=== PATIENT | female | born 1985 | race Caucasian/White ===

== ENCOUNTER 2019-11-29 15:29 | Emergency (ER) | payer OTHER, MEDICAID, SELFPAY ==
[2019-11-29 15:30] VITALS: BP 132/65; PULSE 74; RESP 16; TEMP 36.4; O2SAT 100
[2019-11-29 15:31] VITALS: BP 132/65; PULSE 82; RESP 16; TEMP 36.4; O2SAT 100; BMI 19.8
--- NOTE | 2019-11-29 15:51 | RAD_ITS ---
STUDY: X-RAY - UNILATERAL RIBS ( RIGHT ) REASON FOR EXAM: Female, 34 years old. Lower anterior and upper pain. TECHNIQUE: 4 view(s) of the ribs. COMPARISON: None. FINDINGS: There is no pneumothorax. There are no displaced rib fractures. RAD/Ribs Unil 2V No CXR IMPRESSION: Normal x-ray examination of the ribs. Electronically Signed: Veronika Fernandez, at 17:07 EDT Tel , Service support ,
--- NOTE | 2019-11-29 15:51 | RAD_ITS ---
STUDY: X-RAY CHEST REASON FOR EXAM: Female, 34 years old. Lower anterior and upper pain. TECHNIQUE: Frontal and lateral views of the chest COMPARISON: None. FINDINGS: The lungs are clear and expanded. There is no demonstrated pleural abnormality. Normal size heart. Normal mediastinum and jeremiah. Normal visualized pulmonary arteries. Normal visualized aortic arch and descending thoracic aorta. Normal visualized thoracic spine. Normal visualized ribs, clavicles, and shoulders. There is no demonstrated abnormality of the visualized soft tissue structures of the upper abdomen. RAD/Chest PA and Lateral IMPRESSION: Normal x-ray examination of the chest. Electronically Signed: Veronika Fernandez, at 17:00 EDT Tel , Service support ,
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
[2019-11-29] MEDS: Ketorolac 30 MG/ML Syringe IM (17:38)
[2019-11-29 18:06] VITALS: RESP 16
== END 2019-11-29 18:06 | disposition home or self-care (01) ==
PROVIDERS: Emergency Provider Emergency Medicine; PCP Internal Medicine
DX: S00.83XA Contusion of other part of head, initial encounter (principal); R07.89 Other chest pain; Y04.2XXA Assault by strike against or bumped into by another person, initial encounter
CPT/HCPCS: 70450; 70486; 71046; 71100; 96372; 99282

== ENCOUNTER 2021-09-01 09:20 | Day surgery (SDC) | payer OTHER, MEDICAID, SELFPAY ==
[2021-09-01] MEDS: Lactated Ringers 1,000 ML 15 ML IV ×2 (09:35→12:07)
[2021-09-01 09:56] VITALS: BP 111/64; PULSE 57; RESP 16; TEMP 36.5; O2SAT 100; BMI 24.6
[2021-09-01 09:57] LABS: Internal QC Validated? YES +Cl - CLEAR BKGD; Pregnancy, Urine Negative Negative
[2021-09-01 10:17] LABS: Hematocrit 43.4 % (37-47); Hemoglobin 14.6 g/dL (12.0-15.0); Mean Corp Hgb Conc 33.6 g/dL (32-36); Mean Corpuscular Hgb 31.8 pg (27.0-32.0); Mean Corpuscular Volume 94.6 fL (81-99); Mean Platelet Vol. 10.8 fl (6.2-12.0); Platelet Count 232 K/mm3 (150-450); RBC Distribution Width CV 13.2 % (11.6-14.6); RBC Distribution Width SD 46.1 fl (35.1-43.9); Red Blood Count 4.59 M/mm3 (4.2-5.4); White Blood Count 9.4 K/mm3 (4.4-11.0)
--- NOTE | 2021-09-01 11:10 | FALS_PTH ---
PATIENT: DANIELLE MENCHACA [place] [facility] [id number] AGE/SX: 36/F ROOM: RE09/01/[address]: Dr. Melany Thakkar DO : 1985 BED: DIS: 09/01/2021 SPEC #: [id number] RECD: 09/01/21 12:48 STATUS: HARJEET GIOVANNY #: [id number] SAMANTHA: 09/01/21 11:[address]: Melany Thakkar DEPT: SURGICAL PATHOLOGY RECD BY: Luly Ball ENTERED: 09/02/21 07:19 SP TYPE: FALL TUBES OTHR DR: Dr. Osmar Sotelo MD Tissues: Fallopian tube Procedures: Surgery Specimen Level II HEADER OPERATION: Bilateral laparoscopic salpingectomy, removal IUD PRE-OP DIAGNOSIS: Sterilization TISSUE SUBMITTED: Bilateral fallopian tubes MICROSCOPIC DIAGNOSIS Right and left fallopian tubes, bilateral salpingectomies: Complete cross-sections of two fallopian tubes with no pathologic change. AM:chandrakant 09/05/2021 MICROSCOPIC DESCRIPTION Slides are reviewed. GROSS DESCRIPTION Received in fixative is one container labeled with the patient's name and designated bilateral fallopian tubes. The specimen consists of bilateral fallopian tubes including fimbrial ends each measuring 7 cm in length and 0.7 cm in diameter. The fallopian tubes are not identified as right or left. Sections reveal unremarkable cut surfaces. Portable Grinding Machine Operator sections are submitted in two cassettes with each cassette containing one fallopian tube. / PAULA:chandrakant 09/02/2021 TC:4 CPT: 45580 x2
[2021-09-01] MEDS: Bupivacaine 0.5% PF 10 ML VIAL (11:23)
--- NOTE | 2021-09-01 11:28 | PCM.DC ---
Discharge Instructions Diet Discharge Diet: No restrictions Activity Discharge Activity: May Drive (At least 24 hours after surgery and when you feel your core is strong enough to slam on a brake or turn a steering wheel sharply) and May Shower May resume sexual activity in: 1-2 weeks Ice area for (Minutes): 15 Weight Bearing Status: Weight bearing as tolerated Lifting Restrictions: Nothing heavier than 10 lbs for 1 week Dressing / Incision Call your doctor if your incision/area has: Continuous Slow Oozing, Sudden Increased Bleeding, Increased Pain/ Swelling, Increased Redness, Foul Smelling Discharge and Swelling at the incision site Call your doctor if you observe: Fever of 101 or Higher, Coldness, Increased Pain, Numbness or Tingling, Change in Color, Inability to urinate, Inability to have a bowel movement, Using more than 1 pad per hour, Shortness of breath, Dizziness, Fainting spells, Swelling in the ankles, Chest pain, Increased palpitations (irregular heartbeat), Calf discomfort and Uncontrolled pain Suture Line Care: Avoid Pulling/Pushing and Avoid Pinching/Bending Cleanse incision/area with: Soap & Water Additional Dressing/Incision Instructions:: There is suture under the skin that will dissolve and glue over top. As the glue is coming up you can peel it off or cut it if it is bothersome for you Follow Up Care Please Follow Up With: Melany Thakkar DO When: 1 week Test Results: Test results from this visit will be discussed in further detail at your follow-up appointment, if applicable. Discharge Plan Admission Primary Reason for Your Visit: surgery Attending Provider: Melany Thakkar Primary Care Provider: Osmar Sotelo Discharge Orders/Prescriptions Prescriptions: New oxycodone-acetaminophen [Percocet] 5-325 mg tablet 1 tab PO Q6H PRN (Reason: pain) 7 Days Qty: 5 RF: 0 ibuprofen 600 mg tablet 600 mg PO Q6H PRN (Reason: pain) Qty: 20 RF: 0 Continued Probiotic 3 billion cell Capsule 3,000 mmu cells PO DAILY RF: 0 Referrals / Follow Up: Osmar Sotelo MD [Primary Care Provider] - Disposition Disposition (needs filled in before D/C Order can be placed): Home, Self Care
--- NOTE | 2021-09-01 11:31 | OP.PCM_ITS ---
Problems Associated Problem List Diagnoses (1) Sterilization: (2) Multiparous: Report of Operation Date of Procedure: 09/01/21 Pre-Operative Diagnosis: Desires permanent sterilization, desires IUD removal Post-Operative Diagnosis: As above Surgery/Procedure Performed:: IUD removal, laparoscopic bilateral salpingectomy Description of Surgical Findings:: Normal appearing uterus, bilateral fallopian tubes, and bilateral ovaries. Normal pelvis. Surgeon: Melany Thakkar logistics engineering manager: Mignon MAURICIO Type of Anesthesia: General Special Medications: None Specimen's removed: Bilateral fallopian tubes Drains: None Estimated Blood Loss (mL): < 50 cc Fluids Replaced: See anesthesia record Description of Procedure: Indications: Patient desires permanent sterilization. She understands this is permanent and irreversible and there is a risk of regret. Procedure: Patient was taken to the operating room where general anesthesia was found be adequate. She was prepped and draped in the dorsal lithotomy position using yellowfin stirrups. From below a weighted speculum was placed in the vagina to expose the cervix. The anterior lip of the cervix was grasped with single-tooth tenaculum. Using ring forceps IUD strings were grasped and with gentle traction the IUD was removed easily and noted to be intact. A Dunia cannula was placed for uterine manipulation. Gloves were changed and attention was turned to the abdominal portion of the procedure. A 5 mm incision was made infraumbilically after injection of local. Using the laparoscope the 5 mm port was placed under direct visualization. Once confirmed intraperitoneal CO2 insufflation was initiated. The omentum and bowel below was inspected and no injuries were noted. The patient was placed in Trendelenburg. A right lateral 5 mm post and left lateral 5 mm port were placed after infiltration with local. The pelvis was inspected and noted to be normal-appearing. The right fallopian tube was elevated out of the pelvis and followed out to the fimbriated end. Using the LigaSure device the mesosalpinx was serially clamped, cauterized, and transected until the cornua was reached. Once the cornua was reached the fallopian tube was clamped, cauterized, transected and the right fallopian tube was removed. The same was performed on the left to remove the left fallopian tube. Bilateral fallopian tubes were sent to pathology for review. Hemostasis was noted. The ports were removed and the abdomen was exsufflated. The skin was closed with 4-0 Monocryl in a subcuticular fashion and glue was placed. All instruments were removed from the vagina and the vaginal sweep was performed. Instrument, sponge, needle counts were correct and patient was taken to recovery in stable condition. Grafts/Implants Used: None Complications None Admit VTE Documentation VTE Present on Admission: No VTE Mechan Device Prophylaxis: SCD's
[2021-09-01 11:34] VITALS: BP 111/64; BP 98/83; PULSE 68; RESP 16; TEMP 36.8; O2SAT 100
[2021-09-01 11:45] VITALS: BP 107/58; BP 111/64; PULSE 59; RESP 16; O2SAT 100
[2021-09-01 12:00] VITALS: BP 111/64; BP 128/73; PULSE 65; RESP 16; O2SAT 100
[2021-09-01 12:02] VITALS: BP 111/64; BP 121/72; PULSE 61; RESP 16; TEMP 36.8; O2SAT 100
[2021-09-01 14:00] VITALS: BP 111/64; BP 122/70; PULSE 76; RESP 17; TEMP 37; O2SAT 97
== END 2021-09-01 23:59 | disposition home or self-care (01) ==
LOC: SDC 09:25 → AC 09:28
PROVIDERS: PCP Internal Medicine; Referring Provider Obstetrics & Gynecology; Visit Provider Obstetrics & Gynecology
PROC: (CPT 58661; principal; 2021-09-01 10:55)
DX: Z30.2 Encounter for sterilization (principal); Z30.432 Encounter for removal of intrauterine contraceptive device; Z86.16 Personal history of COVID-19
CPT/HCPCS: 58661; 58301; 00840; 81025; 85027; 86850; 86900; 86901; 87426; 88302; C9803; J7120; J2405

== ENCOUNTER 2024-05-17 10:28 | Emergency (ER) | payer OTHER, SELFPAY ==
[2024-05-17 10:29] VITALS: BP 140/98; PULSE 105; RESP 18; TEMP 37.1; O2SAT 98; BMI 33.3
--- NOTE | 2024-05-17 10:49 | CT_ITS ---
HISTORY: LLQ abd pain, N/V/D. TECHNIQUE: Helically acquired images were obtained of the abdomen and pelvis after the intravenous administration of 100 mL Isovue-370. A radiation dose optimization technique was used for this scan. 437 images. COMPARISON: None. FINDINGS: LOWER CHEST: Lung bases clear. BOWEL: Bowel including appendix nondilated. Mild fluid distention of small bowel and colon. No focal pericolonic inflammatory change observed. LIVER: No enhancing mass. GALLBLADDER/BILIARY TREE: Gallbladder present. SPLEEN/PANCREAS: Homogeneous and nonenlarged. ADRENAL GLANDS/KIDNEYS: Unremarkable. VESSELS: No abdominal aortic aneurysm. PELVIC ORGANS: Intrauterine device in place. Trace free fluid in the pelvis, which can be physiological. BONES: Intact. CT/Abdomen/Pelvis W IV Cont ONLY IMPRESSION: Mild gastroenteritis/diarrheal illness with mild fluid distention of bowel. Electronically Signed: Lesli Stokes MD at 13:29 EST ,
--- NOTE | 2024-05-17 10:50 | EDS_ITS ---
HPI History of Present Illness Chief Complaint: Nausea/Vomiting/Diarrhea Detail of Chief Complaint: Nausea and vomiting and diarrhea and abdominal pain Informant: patient Narrative Narrative: Patient presents to the emergency department with vomiting and diarrhea started 2 days ago. She is having frequent vomiting more 26 times in frequent watery stools. She is also complaining of a lot of pain in the left lower quadrant. Patient states that she has been having gas and bloating for several months. She has had subjective fever and chills at home. She went to urgent care and was referred to the ER. She works in a intermediate. She has been exposed to some colleagues that have had COVID and her grandson she believes may have had vomiting and diarrhea before Barrett. Patient denies recent travel or surgery. She denies blood in her stool or vomit. [facility] Medical History (Updated 05/17/24 @ 14:[address] Akash Romero, DO) Alcohol use Anemia Bladder disease Restless legs Migraine headache Non-smoker Leg cramps Home Medications ?Medication ?Instructions ?Recorded ?Last Taken ?Type dicyclomine 10 mg capsule 20 mg (2 x 10 mg) PO TIDAC #20 05/17/24 Unknown Rx CAPSULES ondansetron 4 mg disintegrating 4 mg PO Q8H PRN PRN Nausea #10 tabs 05/17/24 Unknown Rx tablet Allergy/AdvReac Type Severity Reaction Status Date / Time No Known Allergies Allergy Verified 08/31/23 14:40 Surgical History History of colposcopy No history of previous surgery Social History Smoking Status: Never smoker ROS ROS ED Review of Systems ROS Unobtainable: other Constitutional Constitutional ED: Reports lethargy; Denies chills, fever(s), sweats or weight loss Eyes Eyes: Denies blurry vision, change in vision or diplopia ENT ENT ED: Denies rhinorrhea or sore throat Cardiovascular Cardiovascular: Reports chest pain and racing heartbeat; Denies orthopnea Respiratory/Chest Respiratory/Chest: Reports dyspnea and dyspnea on exertion; Denies cough, orthopnea or sputum Gastrointestinal Gastrointestinal: Reports abdominal pain, diarrhea, nausea and vomiting Genitourinary Genitourinary ED: Denies dysuria, hematuria or urinary frequency Musculoskeletal Musculoskeletal: Denies arthralgias, back pain, myalgias or neck pain Integumentary Denies abscess, Abrasions or rash Neurologic Neurologic: Denies headache(s) or weakness Psychiatric Psychiatric: Denies anxiety, depression or suicidal thoughts Endocrine Endocrinology: Denies polydipsia, polyphagia or polyuria Hematologic/Lymphatic Hematologic/Lymphatic: Denies easy bleeding, easy bruising or lymphadenopathy Allergic/Immunologic Allergic/Immunologic ED: Denies mouth swelling, tongue swelling or urticaria EXAM Physical Exam Const Vital Signs: 05/17/24 10:29 05/17/24 12:28 Temperature 98.7 F Temperature Source Oral Pulse Rate 105 H 91 Respiratory Rate 18 16 Blood Pressure 140/98 H 132/78 H Blood Pressure Mean 112 96 Pulse Ox 98 98 Oxygen Delivery Method Room Air Room Air Positive well nourished and well developed General Appearance ED: well developed and NAD HEENT Reports TM's clear and moist mucous membranes normocephalic and atraumatic; Negative for trauma or tenderness Tympanic Membrane ED: Yes TM's clear Eyes PERRL and EOMs intact bilaterally General Eye ED: Negative for pale conjunctiva or scleral icterus Neck no lymphadenopathy, supple and no JVD General: Negative for tenderness Chest Wall inspection of chest normal and palpation of chest normal Chest: Negative for tenderness Resp normal respiratory effort and clear to auscultation bilaterally Effort and Inspection: Negative for respiratory distress or pain with movement Auscultation: Negative for rhonchi, wheezes or diminished lung sounds Cardio regular rate, regular rhythm, S1 normal heart sound, S2 normal heart sound and no murmurs Peripheral Pulses: pulses 2+ throughout GI normal to inspection, nondistended, normoactive bowel sounds, soft to palpation, non-distended and no masses GI Narrative: Diffuse tenderness on exam. Patient is some guarding to the left lower quadrant. There is no rebound, rigidity, or peritoneal signs. No mass palpation Back/Spine no CVA tenderness and no thoracic nor lumbar tenderness Extremity normal to inspection General Extremety ED: Negative for edema General Extremity: Negative for edema Neuro oriented x3, CN's II-XII intact bilaterally, no sensory deficits noted and gait normal Sensorium / Orientation: awake, alert, oriented to person, oriented to place and oriented to time Motor Exam: strength 5/5 throughout and strength abnormal Psych mental status grossly normal Skin no rashes or lesions noted and no wounds MDM MDM MDM Narrative Medical decision making narrative: Patient presents with vomiting and diarrhea with abdominal discomfort has been going on for 2 days. Patient states there is a history of diverticulitis in the family. Clinically I suspected acute viral illness however needed to rule out diverticulitis or other acute process given the amount of abdominal discomfort she was describing. Established. She was given a liter normal same fluid bolus. CBC with differential the patient awakened at 13.4 with hemoglobin 15.1 and platelet count of 222. Chemistries unremarkable. hCG was negative. Lactate normal at 1.1. CT scan of the abdomen pelvis showed mild gastroenteritis/diarrheal illness and no other acute findings. While in the department she was medicated with Bentyl as well as morphine and Zofran and given a liter and a second fluid bolus. She felt improved after treatment. I recommended that she use Imodium which is [id number] for the diarrhea and we will write her prescription for Bentyl and Zofran. Advised to return if persistent vomiting, worsening abdominal pain, dehydration, or condition worsening way. Patient attempted to give a stool sample for enteric pathogen's but could not produce a sample. Lab Data Attestation: I reviewed the patient's lab results. Labs: Laboratory Results - last 24 hr 05/17/24 11:12 WBC 13.4 H RBC 4.71 Hgb 15.1 H Hct 45.2 MCV 96.0 MCH 32.1 H MCHC 33.4 RDW Std Deviation 48.1 H RDW Coeff of Yari 13.4 Plt Count 222 MPV 10.4 Immature Gran % (Auto) 0.600 Neut % (Auto) 91.9 H Lymph % (Auto) 3.1 L Island % (Auto) 4.0 Eos % (Auto) 0.1 Baso % (Auto) 0.3 Absolute Neuts (auto) 12.3 H Absolute Lymphs (auto) 0.42 L Nucleated RBC % 0 Sodium 137 Potassium 3.8 Chloride 106 Carbon Dioxide 23.0 Anion Gap 8 BUN 10 Creatinine 0.85 Estim Creat Clear Calc 96.92 Est GFR (MDRD) Af Amer 94 Est GFR (MDRD) Non-Af 78 BUN/Creatinine Ratio 11.7 Glucose 121 H Lactic Acid 1.1 Calcium 8.7 Serum , Qual NEGATIVE Radiography Diagnostic Testing: Clinical Impression(s) from Imaging Studies Abdomen/Pelvis CT 05/17/24 10:49 IMPRESSION: Mild gastroenteritis/diarrheal illness with mild fluid distention of bowel. Electronically Signed: Lesli Stokes MD at 13:29 EST , Discharge Plan Triage Chief Complaint: Nausea/Vomiting/Diarrhea ED Provider: Akash Romero Dx/Rx/DC Orders Clinical Impression: Viral gastroenteritis Instructions: ED Gastroenteritis, Viral (Adult) Prescriptions: New ondansetron 4 mg tablet,disintegrating 4 mg PO Q8H PRN PRN (Reason: Nausea) Qty: 10 0RF dicyclomine 10 mg capsule 20 mg PO TIDAC Qty: 20 0RF Primary Care Provider: Clair Lopez Referrals: Osmar Sotelo MD [Med Staff - Cloud Consultant] - 3-5 Days Print Language: Upper Sorbian Disposition Disposition: Home, Self Care
[2024-05-17] MEDS: 0.9% Normal Saline (1000mL) 1,000 ML 999 ML IV (11:14)
[2024-05-17] MEDS: Ondansetron 4 MG/2 ML Vial IV (11:14)
[2024-05-17] MEDS: Morphine 4 MG/ML Syringe IV (11:16)
[2024-05-17] MEDS: Dicyclomine 20 MG/2 ML Vial IM (11:16)
[2024-05-17 11:31] LABS: Absolute Lymphocyte Count 0.42 X10^3/uL (0.83-4.51); Absolute Neutrophil Count 12.3 X10^3/uL (2.0-7.7); Basophil# 0.04 X10^3/uL; Basophil% 0.3 % (0-1); Eosinophil# 0.01 X10^3/uL; Eosinophils% 0.1 % (0-5); Hematocrit 45.2 % (37-47); Hemoglobin 15.1 g/dL (12.0-15.0); Lymphocyte # 0.42 X10^3/ul (0.83-4.51); Lymphocyte % 3.1 % (19-41); Mean Corp Hgb Conc 33.4 g/dL (32-36); Mean Corpuscular Hgb 32.1 pg (27.0-32.0); Mean Platelet Vol. 10.4 fl (6.2-12.0); Monocyte# 0.54 X10^3/uL; NRBC Flagged by Analyzer 0 % (0-5); Neutrophil # 12.31 X10^3/uL (2.7-7.7); Neutrophil % 91.9 % (47-70); Platelet Count 222 K/mm3 (150-450); RBC Distribution Width CV 13.4 % (11.6-14.6); RBC Distribution Width SD 48.1 fl (35.1-43.9); Red Blood Count 4.71 M/mm3 (4.2-5.4); White Blood Count 13.4 K/mm3 (4.4-11.0)
[2024-05-17 11:35] LABS: POSITIVE DIFFERENTIAL NO
[2024-05-17 11:42] LABS: Internal QC Validated? YES +Cl - CLEAR BKGD; Pregnancy, Serum, hCG Quali. NEGATIVE Negative
[2024-05-17 11:47] LABS: Anion Gap 8 (5-15); BUN 10 mg/dL (7-18); BUN/Creat Ratio 11.7 RATIO (10-20); Calcium,Total 8.7 mg/dL (8.5-10.1); Chloride 106 mmol/L (98-107); Creatinine, Serum 0.85 mg/dL (0.55-1.02); EST Glomerular Filtration Rate 78 mL/min (>60); Est Glom Filt Rate - Afr Amer 94 mL/min (>60); Estimated Creatinine Clearance 96.92 ml/min; Glucose 121 mg/dL (74-106); Potassium 3.8 mmol/L (3.5-5.1); Sodium Level 137 mmol/L (136-145)
[2024-05-17 12:01] LABS: Lactic Acid 1.1 mmol/L (0.4-1.9)
[2024-05-17 12:28] VITALS: BP 132/78; PULSE 91; RESP 16; O2SAT 98
== END 2024-05-17 14:13 | disposition home or self-care (01) ==
PROVIDERS: Emergency Provider Emergency Medicine; PCP Internal Medicine; Visit Provider Emergency Medicine
DX: A08.4 Viral intestinal infection, unspecified (principal)
CPT/HCPCS: 74177; 80048; 83605; 84703; 85025; 96361; 96372; 96374; 96375; 99283; Q9967; A4216; J2405

== ENCOUNTER 2024-08-14 15:52 | Emergency (ER) | payer OTHER, SELFPAY ==
[2024-08-14] VITALS (22 sets, daily range): BP systolic 124–168; BP diastolic 66–102; PULSE 65–97; RESP 12–21; TEMP 36; O2SAT 95–99; BMI 34.4
--- NOTE | 2024-08-14 16:09 | ED.VIS.CHEST ---
HPI History of Present Illness Chief Complaint: Chest Pain [facility] Medical History Alcohol use Anemia Bladder disease Restless legs Migraine headache Non-smoker Leg cramps Home Medications ?Medication ?Instructions ?Recorded ?Last Taken ?Type NK 08/14/24 Unknown History Allergy/AdvReac Type Severity Reaction Status Date / Time No Known Allergies Allergy Verified 08/14/24 16:32 Surgical History History of colposcopy No history of previous surgery Social History (Updated 08/14/24 @ 16:31 by Preeti Herndon) household members: significant other and children current occupational status: employed Smoking Status: Never smoker EXAM Physical Exam Const Vital Signs: 08/14/24 15:53 08/14/24 17:10 08/14/24 18:00 Temperature 96.8 F L Temperature Source Temporal Pulse Rate 97 67 65 Respiratory Rate 20 H 16 13 Respiratory Effort Respiratory Depth Respiratory Pattern Blood Pressure 165/102 H 168/93 H 161/92 H Blood Pressure Mean 123 118 115 Pulse Ox 99 99 97 Oxygen Delivery Method Room Air Room Air 08/14/24 18:24 08/14/24 19:00 08/14/24 20:00 Temperature Temperature Source Pulse Rate 74 83 Respiratory Rate 15 15 Respiratory Effort Normal Non-Labored Respiratory Depth Normal Respiratory Pattern Normal Blood Pressure 134/91 H 135/88 H Blood Pressure Mean 105 103 Pulse Ox 97 98 Oxygen Delivery Method Room Air Room Air 08/14/24 20:02 08/14/24 20:15 08/14/24 20:30 Temperature Temperature Source Pulse Rate 81 81 80 Respiratory Rate 15 12 18 Respiratory Effort Respiratory Depth Respiratory Pattern Blood Pressure 136/80 H 130/89 H Blood Pressure Mean 98 101 Pulse Ox 98 99 97 Oxygen Delivery Method 08/14/24 20:45 08/14/24 21:00 08/14/24 21:00 Temperature Temperature Source Pulse Rate 84 82 74 Respiratory Rate 13 17 18 Respiratory Effort Respiratory Depth Respiratory Pattern Blood Pressure 136/79 H 132/66 H 132/66 H Blood Pressure Mean 96 88 72 Pulse Ox 98 97 98 Oxygen Delivery Method 08/14/24 21:15 08/14/24 21:30 08/14/24 21:45 Temperature Temperature Source Pulse Rate 85 79 85 Respiratory Rate 21 H 15 13 Respiratory Effort Respiratory Depth Respiratory Pattern Blood Pressure 155/90 H 145/78 H 160/83 H Blood Pressure Mean 110 97 106 Pulse Ox 98 99 98 Oxygen Delivery Method 08/14/24 22:00 08/14/24 22:15 Temperature Temperature Source Pulse Rate 80 Respiratory Rate 13 Respiratory Effort Respiratory Depth Respiratory Pattern Blood Pressure 136/78 H 137/78 H Blood Pressure Mean 98 96 Pulse Ox 97 Oxygen Delivery Method MDM MDM MDM Narrative Medical decision making narrative: HISTORY OF PRESENT ILLNESS: 39-year-old female presents with chest pain, increased shortness of breath and epigastric abdominal pain. She notes this has been on for last several days. No she is sent in by her primary doctor. She further states she has burning epigastric and chest pain when she lays down flat particular at night. No history of reflux. No significantly better last 3 weeks has been intermittent. Numbness associate with food. Notes history of fallopian tube removal otherwise no abdominal surgeries. She notes some chest pain and shortness breath associated. She notes vomiting that is nonbloody nonbilious. Last episode was today. No melena hematochezia noted but does note yellow discoloration of her stool. Sometimes she has diarrhea. She is never seen a GI doctor before. Denies any chest pain or shortness of breath during my initial exam. No syncope. No focal neurologic deficits endorsed The patient denies recent surgery in the last 4 weeks or immobilization in the last 3 days, denies previous diagnosis of DVT or PE, hemoptysis, unilateral leg swelling or malignancy with treatment the last 6 months or palliative. No estrogen use noted. Patient denies sudden onset of pain, no tearing sensation, no migratory symptoms, no new numbness, weakness or loss of sensation. Patient denies family history or personal history of Connective tissue disorders (Marfan's Syndrome, Sylvia Danlos etc) REVIEW OF SYSTEMS: Pertinent positives: Chest pain, shortness of breath, epigastric abdominal pain Pertinent negatives: Syncope, focal neurologic deficit, melena PHYSICAL EXAM: Nursing triage notes reviewed, Vital signs reviewed Constitutional: please see mdm HENT: MMM Eyes: Pupils equal round and reactive to light, Extraocular muscles intact Neck: No stridor, no JVD, full neck ROM Lungs: Clear to auscultation, No wheezing or rales. No increased work of breathing, no conversational dyspnea, no accessory muscle use, no nasal flaring. No respiratory distress noted Heart: Regular rate and rhythm, No murmurs, No rubs and No gallops, 2+ distal pulses (radial, femoral, posterior tibial) in all extremities Abdomen: Soft, diffuse TTP. negative Cash sign, no rigidity, rebound or guarding, no obvious peritoneal signs, no palpable pulsatile abdominal masses, no auscultated abdominal bruit : No CVAT Extremities: No edema Neuro: No new focal neurological deficits, cranial nerves II through XII intact, 5/5 strength in all present extremities. Intact sensation to light touch in all present extremities, 2+ reflexes bilateral patella tendons. Skin: No rash or lesions noted MEDICAL DECISION MAKING: Chief Complaint: As per HPI External records reviewed: Reviewed prior imaging studies: Reviewed CT scan of the abdomen pelvis from April 2024 which showed mild gastroenteritis. Reviewed prior cardiovascular testing Factors affecting care: none Social determinants of health: Denies current alcohol or drug use History obtained from others: Family Consults: General Surgery (Dr. Earl) - recommended transfer 2/2 potential need for vascular and IR specialist. MDM Narrative: The patient was initially hypertensive with a blood pressure 165/102 otherwise afebrile nontoxic. Exam with clear lungs. No focal cardiopulmonary abnormalities. Abdomen soft with no elicited tenderness. Negative Cash sign. I considered the following differential diagnosis: AAA, small bowel obstruction, abdominal perforation, appendicitis, pancreatitis, hepatobiliary pathology (acute cholecystitis), mesenteric ischemia, pathology (ie nephrolithiasis, pyelonephritis). ACS, PE, arrhythmia, anemia, pneumothorax amongst others I obtained a broad lab and imaging workup to further elucidate etiology of the patient's complaints. I initially treated the patient 1 L IV fluid, 1 g of oral Carafate, 4 mg of IV Zofran and 15 mg of IV Toradol ALL IMAGES (IF OBTAINED) HAVE BEEN PERSONALLY REVIEWED AND INTERPRETED BY MYSELF. EKG with normal sinus rhythm rate of 72, left ax deviation, normal intervals, no STEMI Lactate is wnl indicating no end-organ hypoperfusion and/or hypoxia. CBC with leukocytosis suggestive of system inflammation, no anemia or thrombocytopenia noted No coagulopathy noted BMP with evidence of metabolic acidosis and endorgan hypoperfusion otherwise no significant electrolyte abnormalities or acute kidney injury LFTs show no evidence of hepatobiliary pathology. Lipase is wnl indicating no pancreatic inflammation. High-sensitivity troponin is negative, no evidence of myocardial ischemia I have personally reviewed the patient's chest x-ray. Chest x-ray is unremarkable for pulmonary edema, pneumothorax, pneumonia or focal cardiopulmonary abnormality. CT scan abdomen pelvis shows evidence of acute IMV and SMV in the VTE. Concern for ischemic gut. Concern for possible malignancy. Discussed with our general surgeon here without the patient would better served being transferred to high-level care given lack of certain specially such as interventional radiology and vascular surgery at this time. Discussed with [facility] who got in touch with Dr. Fitzpatrick the surgeon on-call who recommended ED to ED transfer for proper disposition. He also recommended starting on broad-spectrum antibiotics given concern for gas in the small bowel. Patient started on Zosyn. Transfer form signed. Patient is waiting transfer to [facility] ED at time of signout. Signed out to overnight physician. The patient and/or family, caregivers express understanding. The patient and/or family, caregivers agrees with the plan. Shared decision making: I will have a discussion with the patient and or visitors regarding risk/benefits of further testing or admission. They will be made aware of of the risk/benefits inherent in this decision they will be given the opportunity to voice understanding. Total critical care time today provided was at least 60 minutes. This excludes separately billable procedures. Critical care time (if documented) is secondary to the patient having high probability of clinically significant/life threatening deterioration in the patient's condition which required my urgent intervention. Impression: 1. Chest pain 2. Dyspnea 3. Epigastric abdominal pain 3. Acute SMV thrombosis Dispo: Transfer This note was generated with [employer] dictation software. It may contain incorrect words, spelling, and punctuation that were not noted in review of the chart prior to signing. Lab Data Labs: Laboratory Results - last 24 hr 08/14/24 08/14/24 08/14/24 17:03 17:05 19:01 WBC 13.2 H RBC 4.68 Hgb 15.6 H Hct 46.0 MCV 98.3 MCH 33.3 H MCHC 33.9 RDW Std Deviation 50.1 H RDW Coeff of Yari 13.9 Plt Count 247 MPV 10.2 PT 13.0 INR 1.0 APTT 28.8 Sodium 136 Potassium 4.4 Chloride 105 Carbon Dioxide 11.9 L Anion Gap 19 H BUN 12 Creatinine 0.76 Estim Creat Clear Calc 108.23 Est GFR (MDRD) Non-Af 101 BUN/Creatinine Ratio 15.2 Glucose 87 Lactic Acid Calcium 9.0 Total Bilirubin 0.30 AST 29 ALT 26 Alkaline Phosphatase 89 Troponin T High Sens < 6 Troponin T Hi Sens 2 Hr Total Protein 5.9 Albumin 3.9 Globulin 2.0 L Albumin/Globulin Ratio 1.9 Lipase 44 Urine Test Negative 08/14/24 08/14/24 19:45 20:47 WBC RBC Hgb Hct MCV MCH MCHC RDW Std Deviation RDW Coeff of Yari Plt Count MPV PT INR APTT Sodium Potassium Chloride Carbon Dioxide Anion Gap BUN Creatinine Estim Creat Clear Calc Est GFR (MDRD) Non-Af BUN/Creatinine Ratio Glucose Lactic Acid < 1.0 Calcium Total Bilirubin AST ALT Alkaline Phosphatase Troponin T High Sens Troponin T Hi Sens 2 Hr < 6 Total Protein Albumin Globulin Albumin/Globulin Ratio Lipase Urine Test Radiography Diagnostic Testing: Clinical Impression(s) from Imaging Studies Abdomen/Pelvis CT 08/14/24 16:42 IMPRESSION: 1. 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 No obvious extension into the right or left main portal veins or splenic vein. 2. Increased punctate gas within the proximal small bowel loops of the left upper quadrant, which is nonspecific, however most concerning for developing ischemic bowel. Surgical consultation recommended. 3. Increased conspicuity/development of a small segment 5/6 hyperdensity, likely a hemangioma. However given acute SMV/IMV thrombus, malignancy can not be excluded. Recommend nonemergent outpatient MRI abdomen (liver protocol) when clinically able. Dr. Mohr discussed these findings via telephone with Dr. Forman at 8:00 p.m. on 08/14/2024. Reading Location: [facility] Chest X-Ray 08/14/24 16:43 IMPRESSION: No focal consolidation is seen within the lungs. Reading Location: [facility] Discharge Plan Triage Chief Complaint: Chest Pain Other Complaint: Shortness of Breath ED Provider: Patricio Forman Dx/Rx/DC Orders Prescriptions: No Action NK Primary Care Provider: Clair Lopez Referrals: Clair Lopez MD [Primary Care Provider] - Print Language: Divehi
--- NOTE | 2024-08-14 16:18 | EKG12_ITS ---
Test Reason : CP Blood Pressure : */* mmHG Vent. Rate : 72 BPM Atrial Rate : 72 BPM P-R Int : 154 ms QRS Dur : 88 ms QT Int : 390 ms P-R-T Axes : 0 10 43 degrees QTcB Int : 427 ms Normal sinus rhythm with sinus arrhythmia Normal ECG Confirmed by SUSSY CALLAHAN, JAMAL ([id number]), medical editor HOLLEY LUND ([id number]) on 08/15/2024 8:23:06 AM Referred By: Confirmed By: JAMAL HI MD
--- NOTE | 2024-08-14 16:42 | CT_ITS ---
PROCEDURE: ABDOMEN/PELVIS W IV CONT ONLY 08/14/2024 REASON FOR EXAM: 39-year-old female, epigastric abdominal pain x several days. Chest pain and shortness of breath. TECHNIQUE: Abdomen and pelvis CT with intravenous contrast. Coronal and Sagittal reconstruction series were provided. PATIENT PREPARATION: Per protocol ORAL CONTRAST TYPE: None. CONTRAST: Isovue-300 VOLUME: 100mL One or more dose reduction techniques were used (e.g., Automated exposure control, adjustment of the mA and/or kV according to patient size, use of iterative reconstruction technique. RADIATION DOSE SUMMARY: CTDlvol: 30 mGy DLP: 1100 mGycm COMPARISON: CT abdomen pelvis 05/17/2024. FINDINGS: Lung bases: The heart is normal in size. Bibasilar atelectasis. Liver: The liver is normal in size with ill-defined hyperdensity within segment 5/6 measuring 1.9 x 1.4 cm (series 2, image 51), new since prior examination. No biliary ductal dilation. Gallbladder: No radiopaque stones within the gallbladder. Spleen: Unremarkable. Pancreas: Unremarkable. Adrenals: Unremarkable. Kidneys: No hydronephrosis or nephrolithiasis. Bladder: Minimally distended. Reproductive Organs: An IUD is present. Adnexal regions are unremarkable. Right corpus luteum. Bowel: The bowel loops are normal in caliber. Increased punctate gas within the proximal small bowel loops within the left upper quadrant. No ascites or discrete pneumoperitoneum. Normal appendix. Lymph nodes: No suspicious lymph node enlargement. Vasculature: Acute thrombus within the SMV and IMV, with extension into the portal confluence and main portal vein. No obvious extension into the right or left portal veins or splenic vein. Bones: No aggressive osseous lesions. CT/Abdomen/Pelvis W IV Cont ONLY IMPRESSION: 1. 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 No obvious extension into the right or left main portal veins or splenic vein. 2. Increased punctate gas within the proximal small bowel loops of the left upp er quadrant, which is nonspecific, however most concerning for developing ischemic bowel. Surgical consultation recommended. 3. Increased conspicuity/development of a small segment 5/6 hyperdensity, likel y a hemangioma. However given acute SMV/IMV thrombus, malignancy can not be excluded. Recommend nonemergent outpatient MRI abdomen (liver protocol) when clinically able. Dr. Mohr discussed these findings via telephone with Dr. Forman at 8:00 p.m . on 08/14/2024. Reading Location: [id number]
--- NOTE | 2024-08-14 16:43 | RAD_ITS ---
PROCEDURE: CHEST 1 VIEW (PORTABLE) 08/14/2024 REASON FOR EXAM: CHEST PAIN TECHNIQUE: Frontal view of the chest. COMPARISON: Chest x-ray dated 11/29/2019. FINDINGS: The heart is normal in size. No focal consolidation is seen within the lungs. There is no pneumothorax identified. There are no acute osseous abnormalities present. RAD/Chest 1 View (Portable) IMPRESSION: No focal consolidation is seen within the lungs. Reading Location: [id number]
[2024-08-14] MEDS: 0.9% Normal Saline (1000mL) 1,000 ML 1000 ML IV (16:59)
[2024-08-14] MEDS: Ketorolac 15 MG/ML Vial IV (17:00)
[2024-08-14] MEDS: Ondansetron 4 MG/2 ML Vial IV (17:00)
[2024-08-14 17:10] LABS: Hemoglobin 15.6 g/dL (12.0-15.0); Mean Corp Hgb Conc 33.9 g/dL (32-36); Mean Corpuscular Hgb 33.3 pg (27.0-32.0); Mean Corpuscular Volume 98.3 fL (81-99); Mean Platelet Vol. 10.2 fl (6.2-12.0); Platelet Count 247 K/mm3 (150-450); RBC Distribution Width CV 13.9 % (11.6-14.6); RBC Distribution Width SD 50.1 fl (35.1-43.9); Red Blood Count 4.68 M/mm3 (4.2-5.4); White Blood Count 13.2 K/mm3 (4.4-11.0)
[2024-08-14] MEDS: Famotidine 200 MG/20 ML MDV 20 MG in 0.9% Normal Saline (Pres. free 8 ML 300 MG IV (17:16)
[2024-08-14] MEDS: Sucralfate 1 GM Tablet PO (17:16)
[2024-08-14 18:14] LABS: Lipase 44 U/L (13-75)
[2024-08-14 18:32] LABS: Troponin T High Sensitivity < 6 ng/L (<=14)
[2024-08-14 18:41] LABS: ALB/GLOB Ratio 1.9 RATIO (0.9-2.4); AST(SGOT) 29 U/L (<=31); Alanine Aminotransfer ALT/SGPT 26 U/L (<=34); Albumin, Serum 3.9 g/dL (3.5-5.0); Alkaline Phosphatase 89 U/L (35-104); BUN 12 mg/dL (4-19); BUN/Creat Ratio 15.2 RATIO (10-20); Chloride 105 mmol/L (98-108); Creatinine, Serum 0.76 mg/dL (0.70-1.20); EST Glomerular Filtration Rate 101 (>60); Estimated Creatinine Clearance 108.23 ml/min (50-250); Glucose 87 mg/dL (70-99); Potassium 4.4 mmol/L (3.3-5.1); Protein, Total 5.9 g/dL (5.9-8.4); Sodium Level 136 mmol/L (133-145)
[2024-08-14 19:07] LABS: Anion Gap 19 (5-15); Carbon Dioxide 11.9 mmol/L (21.0-32.0)
[2024-08-14 19:28] LABS: Internal QC Validated? YES +Cl - CLEAR BKGD; Pregnancy, Urine Negative Negative
[2024-08-14 20:24] LABS: Troponin T High Sens 2 HR < 6 ng/L (<=14)
[2024-08-14 21:09] LABS: Partial Thromboplast Time 28.8 Seconds (24.1-36.2)
[2024-08-14 21:25] LABS: Lactic Acid < 1.0 mmol/L (0.0-2.0)
[2024-08-14] MEDS: HEPARIN/D5w 25,000 UNITS 25,000 UNITS/250 ML IV.SOLN. 10 UNITS CONT INF (21:46)
[2024-08-14] MEDS: Heparin Injection (Vial) 5,000 UNIT/ML VIAL 4000 UNIT IV (21:46)
[2024-08-14] MEDS: Piperacil/Tazobactam 4.5 GM in 0.9% Normal Saline (100mL MB+) 100 ML IV (22:52)
[2024-08-15] VITALS: BP 128/75; PULSE 77; RESP 17; O2SAT 98
[2024-08-15 00:15] VITALS: BP 125/68; PULSE 70; RESP 19; O2SAT 95
[2024-08-15 00:30] VITALS: BP 134/76; PULSE 76; RESP 16; O2SAT 97
[2024-08-15 00:45] VITALS: BP 128/75; PULSE 78; RESP 19; O2SAT 97
--- NOTE | 2024-08-15 01:10 | ED.RN ---
this RN called report to Velia HOLLIDAY RN.
[2024-08-15 01:17] VITALS: BP 128/75; PULSE 81; RESP 20; TEMP 36.7; O2SAT 97
== END 2024-08-15 01:00 | disposition short-term general hospital (02) ==
LOC: ED 16:22
PROVIDERS: Emergency Provider Emergency Medicine; PCP Internal Medicine; Visit Provider Emergency Medicine
DX: K55.069 Acute infarction of intestine, part and extent unspecified (principal); R07.89 Other chest pain; R06.00 Dyspnea, unspecified; R10.13 Epigastric pain
CPT/HCPCS: 71045; 74177; 80053; 81025; 83605; 83690; 84484; 85027; 85610; 85730; 93005; 96365; 96366; 96367; 96368; 96375; 99285; Q9967; A4216; J2405

== ENCOUNTER 2024-10-30 11:21 | Emergency (ER) | payer OTHER, SELFPAY ==
[2024-10-30 11:22] VITALS: BP 145/79; PULSE 84; RESP 16; TEMP 36.8; O2SAT 99; BMI 35.0
[2024-10-30 11:54] LABS: Absolute Lymphocyte Count 2.57 X10^3/uL (0.83-4.51); Basophil# 0.07 X10^3/uL; Basophil% 0.6 % (0-1); Eosinophils% 0.8 % (0-5); Hemoglobin 15.3 g/dL (12.0-15.0); Lymphocyte # 2.57 X10^3/ul (0.83-4.51); Lymphocyte % 20.3 % (19-41); Mean Corp Hgb Conc 32.6 g/dL (32-36); Mean Corpuscular Hgb 31.9 pg (27.0-32.0); Mean Corpuscular Volume 97.9 fL (81-99); Mean Platelet Vol. 10.5 fl (6.2-12.0); Monocyte# 0.83 X10^3/uL; Monocyte% 6.6 % (0-10); NRBC Flagged by Analyzer 0 % (0-5); Neutrophil % 71.2 % (47-70); Platelet Count 324 K/mm3 (150-450); RBC Distribution Width CV 13.9 % (11.6-14.6); RBC Distribution Width SD 50.3 fl (35.1-43.9); White Blood Count 12.6 K/mm3 (4.4-11.0)
[2024-10-30 11:57] LABS: Internal QC Validated? YES +Cl - CLEAR BKGD; Pregnancy, Serum, hCG Quali. NEGATIVE Negative
--- NOTE | 2024-10-30 12:01 | EDS_ITS ---
HPI HPI - GI History of Present Illness Chief Complaint: Abd Pain Detail of Chief Complaint: Abdominal pain Informant: patient Narrative Narrative: Patient presents to the emergency department with complaint of abdominal pain that started yesterday. Describes intermittent pain that severe at times mostly to the mid and left upper and lower abdomen. Patient denies fevers or chills or sweats. She denies urinary symptoms. She denies blood in her stool or black tarry stool. 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 She is currently on Eliquis for this. She tells me she has been compliant with her medications. She does not smoke cigarettes. Drinks alcohol occasionally. Patient also states that she had colonoscopy and upper GI in September of this year. [facility] Medical History (Updated 10/30/24 @ 14:[address] Akash Romero, ) Alcohol use Anemia Bladder disease Restless legs Migraine headache Non-smoker Leg cramps Home Medications ?Medication ?Instructions ?Recorded ?Last Taken ?Type NK 08/14/24 Unknown History Allergy/AdvReac Type Severity Reaction Status Date / Time No Known Allergies Allergy Verified 10/30/24 11:25 Surgical History History of colposcopy No history of previous surgery Social History (Updated 08/14/24 @ 16:31 by Preeti Herndon) household members: significant other and children current occupational status: employed Smoking Status: Never smoker ROS ROS ED Review of Systems ROS Unobtainable: other Constitutional Constitutional ED: Reports lethargy; Denies chills, fever(s), sweats or weight loss Eyes Eyes: Denies blurry vision, change in vision or diplopia ENT ENT ED: Denies rhinorrhea or sore throat Cardiovascular Cardiovascular: Denies chest pain, orthopnea or racing heartbeat Respiratory/Chest Respiratory/Chest: Denies cough, dyspnea, dyspnea on exertion, orthopnea or sputum Gastrointestinal Gastrointestinal: Reports abdominal pain; Denies diarrhea, nausea or vomiting Genitourinary Genitourinary ED: Denies dysuria, hematuria or urinary frequency Musculoskeletal Musculoskeletal: Denies arthralgias, back pain, myalgias or neck pain Integumentary Denies abscess, Abrasions or rash Neurologic Neurologic: Denies headache(s) or weakness Psychiatric Psychiatric: Denies anxiety, depression or suicidal thoughts Endocrine Endocrinology: Denies polydipsia, polyphagia or polyuria Hematologic/Lymphatic Hematologic/Lymphatic: Denies easy bleeding, easy bruising or lymphadenopathy Allergic/Immunologic Allergic/Immunologic ED: Denies mouth swelling, tongue swelling or urticaria EXAM Physical Exam Const Vital Signs: 10/30/24 11:22 10/30/24 13:22 Temperature 98.3 F Temperature Source Oral Pulse Rate 84 81 Respiratory Rate 16 18 Blood Pressure 145/79 H 135/98 H Blood Pressure Mean 101 110 Pulse Ox 99 98 Oxygen Delivery Method Room Air Room Air Positive well nourished and well developed General Appearance ED: well developed and NAD HEENT Reports TM's clear and moist mucous membranes normocephalic and atraumatic; Negative for trauma or tenderness Tympanic Membrane ED: Yes TM's clear Eyes PERRL and EOMs intact bilaterally General Eye ED: Negative for pale conjunctiva or scleral icterus Neck no lymphadenopathy, supple and no JVD General: Negative for tenderness Chest Wall inspection of chest normal and palpation of chest normal Chest: Negative for tenderness Resp normal respiratory effort and clear to auscultation bilaterally Effort and Inspection: Negative for respiratory distress or pain with movement Auscultation: Negative for rhonchi, wheezes or diminished lung sounds Cardio regular rate, regular rhythm, S1 normal heart sound, S2 normal heart sound and no murmurs Peripheral Pulses: pulses 2+ throughout GI normal to inspection, nondistended, normoactive bowel sounds, soft to palpation, non-distended and no masses GI Narrative: Tenderness to palpation over the left upper quadrant as well as left lower quadrant with some mild guarding. There is no rebound, rigidity, or peritoneal signs. No mass palpated Back/Spine no CVA tenderness and no thoracic nor lumbar tenderness Extremity normal to inspection General Extremety ED: Negative for edema General Extremity: Negative for edema Neuro oriented x3, CN's II-XII intact bilaterally, no sensory deficits noted and gait normal Sensorium / Orientation: awake, alert, oriented to person, oriented to place and oriented to time Motor Exam: strength 5/5 throughout and strength abnormal Psych mental status grossly normal Skin no rashes or lesions noted and no wounds MDM MDM MDM Narrative Medical decision making narrative: Patient presents with abdominal pain with remote self clot in her superior and inferior mesenteric artery currently on Eliquis. She has been compliant with her Eliquis. She denies fevers or chills or sweats. IV line established. CBC with differential obtained showed a white count of 12.6 with hemoglobin 15 and platelet count of 324. Chemistries unremarkable. LFTs were normal. Lactate was normal at 1.0. Lipase normal at 37. Serum hCG was negative. Urinalysis without signs of infection. We did obtain a CT scan of the abdomen pelvis with IV contrast which does not show any acute abnormality. Discussed results with the patient. At this point will discharge to home. Advised to follow-up with her primary care physician within next 3 to 5 days. Patient advised to return if worsening pain, fever, vomiting, bloody stools, or condition should worsen anyway. Etiology of her abdominal pain unclear. Lab Data Attestation: I reviewed the patient's lab results. Labs: Laboratory Results - last 24 hr 10/30/24 10/30/24 10/30/24 11:33 12:18 12:44 WBC 12.6 H RBC 4.80 Hgb 15.3 H Hct 47.0 MCV 97.9 MCH 31.9 MCHC 32.6 RDW Std Deviation 50.3 H RDW Coeff of Yari 13.9 Plt Count 324 MPV 10.5 Immature Gran % (Auto) 0.500 Neut % (Auto) 71.2 H Lymph % (Auto) 20.3 Foard % (Auto) 6.6 Eos % (Auto) 0.8 Baso % (Auto) 0.6 Absolute Neuts (auto) 9.0 H Absolute Lymphs (auto) 2.57 Nucleated RBC % 0 Sodium 138 Potassium 4.0 Chloride 103 Carbon Dioxide 22.2 Anion Gap 14 BUN 10 Creatinine 0.80 Estim Creat Clear Calc 105.84 Est GFR (MDRD) Non-Af 95 BUN/Creatinine Ratio 12.0 Glucose 110 H Lactic Acid 1.0 Calcium 9.8 Total Bilirubin 0.61 AST 29 ALT 32 Alkaline Phosphatase 102 Total Protein 8.0 Albumin 4.6 Globulin 3.4 Albumin/Globulin Ratio 1.4 Lipase 37 Serum , Qual NEGATIVE Urine Color Yellow Urine Clarity Sl. Cloudy Urine pH 6.0 Ur Specific [place] 1.020 Urine Protein 30 H Urine Glucose (UA) Normal Urine Ketones 15 H Urine Occult Blood 25 H Urine Nitrite Negative Urine Bilirubin Negative Urine Urobilinogen 1 H Ur Leukocyte Esterase 25 H Urine RBC 0 SEEN Urine WBC 0-5 SEEN Ur Squamous Epith Cells 5-10 SEEN Urine Bacteria RARE Urine Mucus 1+ Radiography Diagnostic Testing: Clinical Impression(s) from Imaging Studies Abdomen/Pelvis CT 10/30/24 13:00 IMPRESSION: Hepatomegaly. Fatty infiltration of the liver. Reading Location: [place] [id number] Discharge Plan Triage Chief Complaint: Abd Pain ED Provider: Akash Romero Dx/Rx/DC Orders Clinical Impression: Abdominal pain Instructions: ED Abdominal Pain Unkn Cause Fem Prescriptions: No Action NK Primary Care Provider: Clair Lopez Referrals: Clair Lopez MD [Primary Care Provider] - 3-5 Days Print Language: Danish Disposition Disposition: Home, Self Care
[2024-10-30 12:08] LABS: ALB/GLOB Ratio 1.4 RATIO (0.9-2.4); AST(SGOT) 29 U/L (<=31); Alanine Aminotransfer ALT/SGPT 32 U/L (<=34); Albumin, Serum 4.6 g/dL (3.5-5.0); Alkaline Phosphatase 102 U/L (35-104); Anion Gap 14 (5-15); BUN 10 mg/dL (4-19); Calcium,Total 9.8 mg/dL (7.6-11.0); Carbon Dioxide 22.2 mmol/L (21.0-32.0); Chloride 103 mmol/L (98-108); EST Glomerular Filtration Rate 95 (>60); Estimated Creatinine Clearance 105.84 ml/min (50-250); Globulin 3.4 g/dL (2.2-4.2); Glucose 110 mg/dL (70-99); Lipase 37 U/L (13-75); Sodium Level 138 mmol/L (133-145); Total Bilirubin 0.61 mg/dL (0.00-1.30)
[2024-10-30] MEDS: 0.9% Normal Saline (1000mL) 1,000 ML 150 ML IV (12:38)
[2024-10-30 12:53] LABS: Red Blood Cells-Urine 0 SEEN /hpf (0-5)
--- NOTE | 2024-10-30 13:00 | CT_ITS ---
PROCEDURE: ABDOMEN/PELVIS W IV CONT ONLY 10/30/2024 REASON FOR EXAM: ABDOMINAL PAIN, HX OF MESENTERIC ISCHEMIA Alcohol abuse. TECHNIQUE: Abdomen and pelvis CT with intravenous contrast. Coronal and Sagittal reconstruction series were provided. PATIENT PREPARATION: Per protocol ORAL CONTRAST TYPE: None. CONTRAST: Isovue-300 VOLUME: 100 mL One or more dose reduction techniques were used (e.g., Automated exposure control, adjustment of the mA and/or kV according to patient size, use of iterative reconstruction technique. RADIATION DOSE SUMMARY: CTDlvol: 15.2 mGy DLP: 1134.95 mGycm COMPARISON: Prior study dated August 14, 2024. FINDINGS: Lung bases: Unremarkable Liver: Hepatomegaly. Fatty infiltration of the liver. Gallbladder: Unremarkable Spleen: Normal size. Pancreas: Normal size without evidence of mass surrounding inflammation or ductal dilation. Adrenals: Unremarkable Kidneys: Normal renal sizes. No hydronephrosis. Bladder: Unremarkable Reproductive Organs: IUD seen within the uterus. Bowel: Unremarkable Appendix: Appendix is unremarkable. Lymph nodes: No suspicious lymph node enlargement. Vasculature: The abdominal aorta and IVC are normal. Peritoneum / Retroperitoneum: No free air. No free fluid. Bones: Unremarkable CT/Abdomen/Pelvis W IV Cont ONLY IMPRESSION: Hepatomegaly. Fatty infiltration of the liver. Reading Location: [place] [id number]
[2024-10-30 13:01] LABS: Color, Urine Yellow (Yellow); Glucose, Dipstick Normal (Normal); Ketone-Dipstick 15 mg/dl (Negative); Leukocyte Esterase-Dipstick 25 /ul (Negative); Nitrite-Dipstick Negative (Negative); Occult Blood-Urine 25 /ul (Negative); Protein-Dipstick 30 mg/dl (Negative); Urine Bilirubin Dipstick Negative (Negative); Urine Clarity Sl. Cloudy (Clear); Urine Urobilinogen 1 mg/dl (Normal)
[2024-10-30 13:20] LABS: Bacteria RARE /hpf (None Seen); Mucous, Urine 1+ /hpf (<or=2+); Squamous Epithelial Cells - UA 5-10 SEEN /hpf (5-10); White Blood Cells 0-5 SEEN /hpf (0-5)
[2024-10-30 13:22] VITALS: BP 135/98; PULSE 81; RESP 18; O2SAT 98
[2024-10-30 14:18] VITALS: BP 150/94; PULSE 53; RESP 17; TEMP 36.7; O2SAT 99
== END 2024-10-30 14:35 | disposition home or self-care (01) ==
PROVIDERS: Emergency Provider Emergency Medicine; PCP Internal Medicine; Visit Provider Emergency Medicine
DX: R10.9 Unspecified abdominal pain (principal); Z79.01 Long term (current) use of anticoagulants
CPT/HCPCS: 74177; 80053; 81001; 83605; 83690; 84703; 85025; 96360; 96361; 99282; Q9967; A4216

== ENCOUNTER 2025-03-04 06:43 | Emergency (ER) | payer OTHER, SELFPAY ==
[2025-03-04 06:43] VITALS: BP 137/87; PULSE 93; RESP 18; TEMP 36.7; O2SAT 99; BMI 35.5
--- NOTE | 2025-03-04 07:19 | CT_ITS ---
EXAM: NONCONTRAST CT SCAN OF THE HEAD CLINICAL HISTORY: Neuralgia COMPARISON: None TECHNIQUE: Serial axial series through the head were obtained without contrast. 2-D coronal and sagittal reformats were then obtained. FINDINGS: Brain: There is no acute large territorial infarct, intracranial hemorrhage, midline shift or mass effect. The sella and pineal gland regions appear unremarkable. There is no evidence of cerebellar tonsillar herniation. Ventricles: There is no acute hydrocephalus. Basilar cisterns are patent. Paranasal sinuses: Well-aerated Mastoid air cells: Well-aerated. Calvarium: The bony calvarium is intact. Orbits: The bilateral globes are symmetric, without retrobulbar compressive mass lesion or hemorrhage. CT/Brain/Head without Contrast IMPRESSION: No acute intracranial pathology. Reading Location: [facility]
--- NOTE | 2025-03-04 07:24 | CT_ITS ---
PROCEDURE: CTA HEAD AND NECK W/ CONTRAST 03/04/2025 REASON FOR EXAM: NEURALGIA TECHNIQUE: Procedure Code: [id number].HDNCK Modality: CT Procedure: CTA HEAD AND NECK W/ CONTRAST Multiplanar Sagittal and Coronal images were obtained. CONTRAST: 98 cc Isovue 370 One or more dose reduction techniques were used (e.g., Automated exposure control, adjustment of the mA and/or kV according to patient size, use of iterative reconstruction technique). RADIATION DOSE SUMMARY: DLP: 1447 mGycm COMPARISON: None FINDINGS: Aortic Arch: Unremarkable Brachiocephalic and Subclavians: Patent RIGHT Carotid: Right CCA: Patent Right ICA: Patent Maximum stenosis (NASCET): 0 % Right ECA: Patent LEFT Carotid: Left CCA: Patent Left ICA: Patent Maximum stenosis (NASCET): 0 % Left ECA: Patent Vertebrals: Patent RIGHT Vertebral: Patent dominant LEFT Vertebral: Patent Anatomy: Unremarkable Aneurysm or avm: None Anterior cerebral arteries: Patent Middle cerebral arteries: Patent Basilar artery: Patent Posterior cerebral arteries: Patent Other major branches of the posterior circulation: Patent Major venous structures: Unremarkable Other findings: Neck: Unremarkable lungs: Clear bones: There is no acute bony abnormality CT/CTA Head AND Neck W/ Contrast IMPRESSION: CTA of the head and neck is within normal limits. Reading Location: [facility]
[2025-03-04] MEDS: 0.9% Normal Saline (1000mL) 1,000 ML 999 ML IV (07:38)
[2025-03-04 07:43] VITALS: BP 135/89; PULSE 93; RESP 19
--- NOTE | 2025-03-04 07:49 | EX.ED.DYSGE1 ---
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 Patient states for the past month she has been having intermittent right scalp neuralgia pain. She describes it as a lightening bolt shooting across the right parietal/temporal region of her scalp. States that it occurs randomly. She states that applying pressure to the area makes the pain better. She states that usually lasts about 45 minutes and then disappears. She states she also gets a paresthesia feeling with the lightening bolt. She denies true headache. Patient states shortly after developing this pain today she closed her eyes and had a flicker of light in her left eye however this quickly resolved and is no longer present. She denies any trauma to the head. Denies any fever, chills, hearing changes, vision changes other than the flashes of light earlier today, rash, URI symptoms, headache, neck pain, weakness, numbness/tingling other than described above, chest pain, shortness of breath. Patient does state that she gets chronic nausea and vomiting every morning which is not new. Review of systems: See HPI Medications: As listed on the chart Allergies: As listed on the chart PFSH: Per chart Vital signs: As listed on the chart. Reviewed. Physical exam: Gen: A&O x3, NAD Head: Normocephalic, atraumatic, no rash on the scalp, endorses worsening neuralgic pain when I touch the right parietal/temporal region of her scalp, no temporal artery tenderness Eyes: No sclera icterus, conjunctiva clear, PERRL, EOMI, No periorbital swelling or ecchymosis, no proptosis, no pain with extra ocular movements, EOMI intact, no enophthalmos, optic discs visualized and normal bilaterally, no retinal hemorrhages, blood vessels and macula normal ENT: TMs clear BL, moist mucous membranes, posterior oropharynx unremarkable, uvula midline, no facial asymmetry Neck: Trachea midline, Full ROM, nontender CV: RRR, no murmurs Resp: Lungs CTA BL, no w/r/c GI: Abd soft, non-distended, non-tender, no r/r/g Musc: Full ROM, no deformity, strength +5/5 in all extremities, no pronator drift, no ataxia Skin: Warm, dry, intact Neuro: Alert, oriented, grossly intact, sensation intact other than the neuralgic pain on the scalp, no focal deficits Psych: Cooperative, appropriate mood and affect [facility] Medical History Alcohol use Anemia Bladder disease Restless legs Migraine headache Non-smoker Leg cramps Home Medications ?Medication ?Instructions ?Recorded ?Last Taken ?Type apixaban 5 mg tablet (Eliquis) 5 mg PO BID 03/04/25 Unknown History pantoprazole 40 mg tablet,delayed 40 mg PO DAILY 03/04/25 Unknown History release Allergy/AdvReac Type Severity Reaction Status Date / Time No Known Allergies Allergy Verified 03/04/25 06:44 Surgical History History of colposcopy No history of previous surgery Social History (Updated 08/14/24 @ 16:31 by Preeti Herndon) household members: significant other and children current occupational status: employed Smoking Status: Never smoker EXAM Physical Exam Const Vital Signs: 03/04/25 06:43 03/04/25 07:43 03/04/25 08:00 Temperature 98.1 F Temperature Source Oral Pulse Rate 93 93 76 Respiratory Rate 18 19 H 18 Blood Pressure 137/87 H 135/89 H 135/89 H Blood Pressure Mean 103 104 104 Pulse Ox 99 97 Oxygen Delivery Method Room Air Room Air 03/04/25 09:00 Temperature Temperature Source Pulse Rate 72 Respiratory Rate Blood Pressure 132/82 H Blood Pressure Mean 98 Pulse Ox 97 Oxygen Delivery Method Room Air MDM MDM MDM Narrative Medical decision making narrative: 39-year-old female with past medical history of migraine headaches, restless legs, 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 Patient states for the past month she has been having intermittent right scalp neuralgia pain. She describes it as a lightening bolt shooting across the right parietal/temporal region of her scalp. States that it occurs randomly. She states that applying pressure to the area makes the pain better. She states that usually lasts about 45 minutes and then disappears. She states she also gets a paresthesia feeling with the lightening bolt. She denies true headache. See HPI and physical exam. Triage note states that the patient has a history of PE, she does not. This was confirmed on chart review. Differential diagnosis includes but is not limited to trigeminal neuralgia, migraine, electrolyte abnormality, dehydration, intracranial abnormality, aneurysm, not consistent with CVA. Morphine, Zofran, NS bolus ordered. Laboratory workup ordered including CT head and CTA head and neck. CBC without leukocytosis or anemia. Platelets unremarkable. CMP unremarkable. UA negative for UTI. CT of the head shows no acute intracranial abnormality. CTA head and neck within normal limits. At this point in time, no clear etiology to explain patient's symptoms however I suspect that is secondary to neuralgia. Will start the patient on carbamazepine to see if this helps with her pain. Recommend following up with primary care physician and neurology. Return precautions explained. She confirmed understand the plan. Patient stable to discharge home. Impression 1. Right scalp neuralgia pain Lab Data Labs: Laboratory Results - last 24 hr 03/04/25 03/04/25 07:40 08:25 WBC 8.3 RBC 4.37 Hgb 14.5 Hct 42.7 MCV 97.7 MCH 33.2 H MCHC 34.0 RDW Std Deviation 48.7 H RDW Coeff of Yari 13.5 Plt Count 250 MPV 9.8 Immature Gran % (Auto) 0.600 Neut % (Auto) 72.2 H Lymph % (Auto) 19.0 Crowley % (Auto) 6.8 Eos % (Auto) 0.8 Baso % (Auto) 0.6 Absolute Neuts (auto) 6.0 Absolute Lymphs (auto) 1.57 Nucleated RBC % 0 Sodium 141 Potassium 4.1 Chloride 106 Carbon Dioxide 21.7 Anion Gap 13 BUN 9 Creatinine 0.73 Estim Creat Clear Calc 116.75 Est GFR (MDRD) Non-Af 107 BUN/Creatinine Ratio 11.8 Glucose 116 H Calcium 9.2 Magnesium 2.1 Total Bilirubin 0.23 AST 28 ALT 26 Alkaline Phosphatase 86 Total Protein 7.4 Albumin 4.4 Globulin 3.0 Albumin/Globulin Ratio 1.4 Urine Color Yellow Urine Clarity Clear Urine pH 8.0 Ur Specific Enterprise 1.010 Urine Protein 15 H Urine Glucose (UA) Normal Urine Ketones Negative Urine Occult Blood Negative Urine Nitrite Negative Urine Bilirubin Negative Urine Urobilinogen Normal Ur Leukocyte Esterase Negative Urine RBC 0 SEEN Urine WBC 0-5 SEEN Ur Squamous Epith Cells 0-5 SEEN Urine Bacteria 0 SEEN Urine Mucus 0 SEEN Radiography Diagnostic Testing: Clinical Impression(s) from Imaging Studies Brain CT 03/04/25 07:19 IMPRESSION: No acute intracranial pathology. Reading Location: [facility] Head/Neck CTA 03/04/25 07:24 IMPRESSION: CTA of the head and neck is within normal limits. Reading Location: [facility] Discharge Plan Triage Chief Complaint: Headache ED Provider: Yaron Amaya Dx/Rx/DC Orders Prescriptions: No Action pantoprazole 40 mg tablet,delayed release (DR/EC) 40 mg PO DAILY Eliquis 5 mg tablet 5 mg PO BID Primary Care Provider: Clair Lopez Referrals: Clair Lopez MD [Primary Care Provider, Internal Medicine] Print Language: Cameroonian
[2025-03-04 07:59] LABS: Hematocrit 42.7 % (37-47); Hemoglobin 14.5 g/dL (12.0-15.0); Immature Granulocytes Count 0.050 X10^3/uL (0.0-0.0); Mean Corp Hgb Conc 34.0 g/dL (32-36); Mean Corpuscular Volume 97.7 fL (81-99); Mean Platelet Vol. 9.8 fl (6.2-12.0); NRBC Flagged by Analyzer 0 % (0-5); Platelet Count 250 K/mm3 (150-450); RBC Distribution Width CV 13.5 % (11.6-14.6); RBC Distribution Width SD 48.7 fl (35.1-43.9); Red Blood Count 4.37 M/mm3 (4.2-5.4); White Blood Count 8.3 K/mm3 (4.4-11.0)
[2025-03-04 08:00] VITALS: BP 135/89; PULSE 76; RESP 18; O2SAT 97
[2025-03-04 08:34] LABS: AST(SGOT) 28 U/L (<=31); Alanine Aminotransfer ALT/SGPT 26 U/L (<=34); Albumin, Serum 4.4 g/dL (3.5-5.0); Alkaline Phosphatase 86 U/L (35-104); Anion Gap 13 (5-15); BUN 9 mg/dL (4-19); BUN/Creat Ratio 11.8 RATIO (10-20); Calcium,Total 9.2 mg/dL (7.6-11.0); Carbon Dioxide 21.7 mmol/L (21.0-32.0); Chloride 106 mmol/L (98-108); Estimated Creatinine Clearance 116.75 ml/min (50-250); Globulin 3.0 g/dL (2.2-4.2); Glucose 116 mg/dL (70-99); Magnesium 2.1 mg/dL (1.5-2.2); Potassium 4.1 mmol/L (3.3-5.1)
[2025-03-04 08:38] LABS: Mucous, Urine 0 SEEN /hpf (<or=2+); Red Blood Cells-Urine 0 SEEN /hpf (0-5)
[2025-03-04 08:43] LABS: Color, Urine Yellow (Yellow); Glucose, Dipstick Normal (Normal); Ketone-Dipstick Negative (Negative); Leukocyte Esterase-Dipstick Negative /ul (Negative); Nitrite-Dipstick Negative (Negative); Occult Blood-Urine Negative /ul (Negative); Protein-Dipstick 15 mg/dl (Negative); Specific Gravity, Urine 1.010 (1.002-1.030); Urine Bilirubin Dipstick Negative (Negative)
[2025-03-04 08:51] LABS: Squamous Epithelial Cells - UA 0-5 SEEN /hpf (5-10)
[2025-03-04 09:00] VITALS: BP 132/82; PULSE 72; O2SAT 97
[2025-03-04 09:26] VITALS: BP 126/79; PULSE 77; RESP 16; TEMP 36.8; O2SAT 98
== END 2025-03-04 09:41 | disposition home or self-care (01) ==
PROVIDERS: Emergency Provider Surgery; PCP Internal Medicine; Visit Provider Surgery
DX: M79.2 Neuralgia and neuritis, unspecified (principal); G43.909 Migraine, unspecified, not intractable, without status migrainosus; G25.81 Restless legs syndrome; Z86.79 Personal history of other diseases of the circulatory system; Z79.01 Long term (current) use of anticoagulants
CPT/HCPCS: 70450; 70496; 70498; 80053; 81001; 83735; 85025; 96361; 96374; 96375; 99284; Q9967; A4216; J2405